=== PATIENT | female | born 1970 | race Two or more races ===

== ENCOUNTER 2023-08-25 17:31 | Emergency (ER) | payer OTHER ==
[~2023-08-25] VITALS: Ht 167.6 cm; Wt 47.2 kg
[2023-08-25 18:36] LABS: HEMATOCRIT 35.9 % (36.0-45.00); HEMOGLOBIN 11.8 g/dL (12.0-15.00); MEAN CELL VOLUME 86.2 fL (80.00-100.00); MEAN CORPUSCULAR HEMOGLOBIN 28.4 pg (27.00-32.0); MEAN CORPUSCULAR HGB CONC 32.9 g/dl (32.0-36.0); PLATELET COUNT 267 K/uL (150-450); RED BLOOD COUNT 4.17 M/uL (4.00-6.00)
[2023-08-25 19:03] LABS: ALBUMIN 3.6 gm/dL (3.4-5.0); BILIRUBIN TOTAL 0.27 mg/dL (0.3-1.2); CALCIUM 9.2 mg/dL (8.5-10.1); CREATININE SERUM 0.76 mg/dL (0.55-1.02); GFR 79.61; GLOBULINA 3.3 G/DL (2.4-3.5); POTASSIUM 3.26 mEq/L (3.5-5.1); TOTAL PROTEIN 6.9 gm/dL (6.4-8.2)
[2023-08-25 19:40] LABS: PH,URINE 6.5 (5.0-8.0); URINE APPEARANCE Clear; URINE BILIRRUBIN Negative (NEGATIVE); URINE BLOOD Trace; URINE COLOR Yellow; URINE GLUCOSE Negative (NEGATIVE); URINE LEUKOCYTE Small; URINE NITRATE Negative; URINE PROTEIN Negative (NEGATIVE)
[2023-08-25 19:44] LABS: URINE BACTERIA 42.8 uL (0.0-1933); URINE EPITHELIAL CELLS 5.7 uL (0.0-38.8); URINE RBC 11.9 uL (0.0-20.8); URINE WBC 24.5 uL (0.0-23.2)
== END 2023-08-25 22:48 | disposition home or self-care (01) ==
LOC: ER 17:31
PROVIDERS: General Practice
DX: R10.32 Left lower quadrant pain (principal); Z88.8 Allergy status to other drugs, medicaments and biological substances